=== PATIENT | female | born 1960 | race Caucasian/White ===

== ENCOUNTER 2022-02-12 10:15 | Emergency (ER) | payer OTHER ==
[~2022-02-12] VITALS: Ht 175.3 cm; Wt 70.5 kg
[2022-02-12] MEDS ORDERED: ROCURONIUM BROMIDE 10 MG/ML 5 ML VIAL IVP ONE (10:18)
[2022-02-12] MEDS ORDERED: PROPOFOL 1% 20 ML VIAL IVP ONE (10:18)
[2022-02-12] MEDS ORDERED: LIDOCAINE/PF 2% 5 ML VIAL IM ONE (10:18)
[2022-02-12] MEDS ORDERED: MIDAZOLAM HCL 2 MG/2 ML VIAL IVP ONE (10:18)
[2022-02-12] MEDS ORDERED: FentaNYL CITRATE PF 100 MCG/2 ML VIAL IVP ONE (10:18)
[2022-02-12] MEDS ORDERED: ACETAMINOPHEN 325 MG TABLET PO PRN (10:45)
[2022-02-12] MEDS ORDERED: ONDANSETRON HCL 4 MG/2 ML VIAL IVP PRN (10:45)
[2022-02-12] MEDS ORDERED: MAGNESIUM HYDROXIDE SUSPENSION 30 ML UDCUP PO PRN (10:45)
[2022-02-12] MEDS ORDERED: SODIUM CHLORIDE 0.9% 1,000 ML IV ONE (10:45)
[2022-02-12] MEDS ORDERED: MORPHINE SULFATE 2 MG/ML SYRINGE IVP PRN (10:45)
[2022-02-12 10:56] LABS: COVID AG,FIA SOURCE NASAL SWAB
[2022-02-12] MEDS ORDERED: CefTRIAXone 1 GM/DEXTROSE 50 ML IV SCH (11:00)
[2022-02-12] MEDS ORDERED: LIDOCAINE/PF 1% 30 ML VIAL ONE (11:21)
[2022-02-12] MEDS ORDERED: IOHEXOL 240 MG/ML 20 ML VIAL ONE ×2 (12:15)
[2022-02-12] MEDS ORDERED: SUGAMMADEX SODIUM 200 MG/2 ML VIAL IVP ONE (12:59)
[2022-02-12] MEDS ORDERED: HYDROmorphone HCL 2 MG/ML SYRINGE IVP PRN (13:00)
[2022-02-12] MEDS ORDERED: FentaNYL CITRATE PF 100 MCG/2 ML VIAL IVP PRN (13:00)
[2022-02-12] MEDS ORDERED: SODIUM CL IRRIG SOLN BAG 3,000 ML IRRIG ONE (13:45)
[2022-02-12 17:08] VITALS: BP 119/74
[2022-02-12] MEDS ORDERED: OXYGEN THERAPY IH SCH (20:00)
[2022-02-12] MEDS ORDERED: DOCUSATE SODIUM 100 MG CAPSULE PO SCH (21:00)
[2022-02-13] MEDS ORDERED: PANTOPRAZOLE SODIUM 40 MG/VIAL IVP SCH (09:00)
== END 2022-02-12 18:25 | disposition home or self-care (01) ==
LOC: EMS 10:17
DX: N20.0 Calculus of kidney (principal); N39.0 Urinary tract infection, site not specified; I10 Essential (primary) hypertension; K58.9 Irritable bowel syndrome, unspecified; F17.210 Nicotine dependence, cigarettes, uncomplicated; F15.90 Other stimulant use, unspecified, uncomplicated; Z90.49 Acquired absence of other specified parts of digestive tract; Z90.89 Acquired absence of other organs; Z20.822 Contact with and (suspected) exposure to COVID-19
CPT/HCPCS: 99285; 96365; 87426; Z7506; C1716; Z7610 ×3; J2704; J0696; J3010; J3490 ×2; J2250; Q9967; J7030; Q9966